=== PATIENT | male | born 1960 | race Hispanic/Latino ===

== ENCOUNTER 2023-01-13 13:22 | Emergency (ER) | payer MEDICAID ==
[~2023-01-13] VITALS: Ht 172.7 cm; Wt 77.1 kg
[2023-01-13] MEDS ORDERED: KETOROLAC 15MG/ML VIAL (15MG/ML) IV SCH (14:30)
[2023-01-13] MEDS ORDERED: CEFTRIAXONE 1G VIAL IVPB SCH (14:30)
[2023-01-13 14:39] LABS: BASOPHILS % (AUTO) 0.3 % (0.0-5.0); EOSINOPHILS % (AUTO) 0.2 % (0.0-8.0); HEMATOCRIT 45.1 % (42-54); LYMPHOCYTES % (AUTO) 11.6 % (21.0-51.0); MEAN CORPUSCULAR HEMOGLOBIN 30.4 pg (27.0-33.0); MEAN CORPUSCULAR HGB CONC 33.7 g/dL (32.0-36.0); MEAN CORPUSCULAR VOLUME 90.2 fL (79-99); MONOCYTES % (AUTO) 7.1 % (3.0-13.0); NEUTROPHILS % (AUTO) 80.6 % (40.0-77.0); PLATELET COUNT (AUTO) 279 K/uL (130-400); RED CELL DISTRIBUTION WIDTH 12.4 % (11.0-15.5); WHITE BLOOD COUNT (AUTO) 12.1 K/uL (4.8-10.8)
[2023-01-13 15:00] LABS: CREATININE 1.1 mg/dL (0.5-1.5); POTASSIUM 4.5 mmol/L (3.5-5.1)
[2023-01-13] MEDS ORDERED: CEPH500B PO (15:25)
[2023-01-13 15:34] VITALS: BP 135/110; PULSE 79; RESP 18; O2SAT 99
[2023-01-13 15:58] LABS: ERYTHROCYTE SEDIMENTATION RATE 20 MM/HR (0-20)
== END 2023-01-13 15:45 | disposition home or self-care (01) ==
LOC: EDH 13:22
DX: L03.113 Cellulitis of right upper limb (principal); F41.9 Anxiety disorder, unspecified; M19.90 Unspecified osteoarthritis, unspecified site; J45.909 Unspecified asthma, uncomplicated; F17.200 Nicotine dependence, unspecified, uncomplicated
CPT/HCPCS: 99285; 96374; 73200; 96375; 80048; 85025; 85651; 36415; J0696; J1885

== ENCOUNTER 2023-01-14 16:52 | Observation (INO) | payer MEDICAID ==
[~2023-01-14] VITALS: Ht 172.7 cm; Wt 93.2 kg
[~2023-01-14 16:52] MED LIST: CEPH500B PO
[2023-01-14 19:57] LABS: BASOPHILS # (AUTO) 0.04 K/uL (0.00-0.20); BASOPHILS % (AUTO) 0.4 % (0.0-5.0); HEMATOCRIT 42.9 % (42-54); IMMATURE GRANULOCYTE ABSOLUTE 0.03 K/uL (0-1); LYMPHOCYTES # (AUTO) 2.4 K/uL (1.0-4.8); LYMPHOCYTES % (AUTO) 24.2 % (21.0-51.0); MEAN CORPUSCULAR HEMOGLOBIN 30.7 pg (27.0-33.0); MEAN CORPUSCULAR HGB CONC 33.3 g/dL (32.0-36.0); MEAN CORPUSCULAR VOLUME 92.1 fL (79-99); MONOCYTES # (AUTO) 0.8 K/uL (0.1-1.0); MONOCYTES % (AUTO) 8.6 % (3.0-13.0); NEUTROPHILS # (AUTO) 6.3 K/uL (1.8-7.7); NEUTROPHILS % (AUTO) 64.5 % (40.0-77.0); PLATELET COUNT (AUTO) 251 K/uL (130-400); RED BLOOD CELL COUNT(AUTO) 4.66 MIL/uL (4.50-6.20); RED CELL DISTRIBUTION WIDTH 12.4 % (11.0-15.5); WHITE BLOOD COUNT (AUTO) 9.8 K/uL (4.8-10.8)
[2023-01-14] MEDS ORDERED: ZOSYN 3.375GM +NS 50ML IVPB ONE (20:00)
[2023-01-14] MEDS ORDERED: VANCOMYCIN KIT 1 GM/250 ML IV.KIT IV ONE (20:00)
[2023-01-14 20:03] LABS: APPEARANCE,URINE CLEAR (CLEAR); BILIRUBIN,URINE NEGATIVE (NEGATIVE); COLOR,URINE YELLOW (YELLOW); GLUCOSE, URINE (UA) NEGATIVE (NEGATIVE); KETONES,URINE NEGATIVE (NEGATIVE); LEUKOCYTE ESTERASE ,URINE NEGATIVE Leu/uL (NEGATIVE); NITRATE,URINE NEGATIVE (NEGATIVE); OCCULT BLOOD,URINE SMALL (NEGATIVE); PH,URINE 5.5 (5.0-8.0); PROTEIN,URINE NEGATIVE (NEGATIVE)
[2023-01-14] MEDS ORDERED: ZOSYN 3.375GM+NS 50ML 50 ML IVPB ONE (20:08)
[2023-01-14] MEDS ORDERED: VANCOMYCIN 1G/250ML KIT 250 ML IV ONE (20:08)
[2023-01-14 20:14] LABS: ADD UA MICROSCOPIC YES
[2023-01-14 20:16] LABS: BACTERIA,URINE RARE /HPF (None Seen); MUCUS,URINE MOD LPF (None Seen); WBC,URINE 0-1 /HPF (0-1)
[2023-01-14 20:17] LABS: POTASSIUM 3.9 mmol/L (3.5-5.1)
[2023-01-14 20:22] LABS: ALBUMIN 3.4 g/dL (3.5-5.0); BILIRUBIN,TOTAL 0.2 mg/dL (0.2-1.0); TOTAL PROTEIN, SERUM 7.2 g/dL (6.0-8.3)
[2023-01-14 20:50] LABS: CRP QUANTITATIVE 76.3 mg/L (0.00-9.0)
[2023-01-14] MEDS ORDERED: ACETAMINOPHEN 325 MG TAB PO PRN ×2 (23:00)
[2023-01-14] MEDS ORDERED: 0.9% NACL 500ML IV.SOLN 500 ML IV ONE (23:00)
[2023-01-14] MEDS ORDERED: MORPHINE 2 MG SYG IV PRN (23:00)
[2023-01-14] MEDS ORDERED: MORPHINE 4 MG SYG IV PRN (23:00)
[2023-01-14] MEDS ORDERED: VANCOMYCIN PROTOCOL PER PHARMACY IV PRN (23:00)
[2023-01-14] MEDS ORDERED: ONDANSETRON 4MG INJ IV PRN (23:00)
[2023-01-14] MEDS ORDERED: KETOROLAC 15MG/ML VIAL (15MG/ML) IV ONE (23:00)
[2023-01-14] MEDS ORDERED: MEROPENEM 1 GM VIAL ONE (23:26)
[2023-01-14] MEDS: LACTATED RINGERS 1000ML 1,000 ML IV SCH (23:33)
[2023-01-14] MEDS: MEROPENEM 1 GM in 0.9%NACL 100ML 100 ML IVPB SCH (23:33)
[2023-01-14 23:59] LABS: SARS-CoV-2, RNA, NAAT NEGATIVE SARS CoV-2 (NEGATIVE)
[2023-01-15 00:32] VITALS: BP 147/68; PULSE 73; RESP 20; O2SAT 96
[2023-01-15 04:45] VITALS: BP 148/58; PULSE 70; RESP 20
[2023-01-15 05:29] LABS: HEMATOCRIT 40.7 % (42-54); MEAN CORPUSCULAR HEMOGLOBIN 30.2 pg (27.0-33.0); MEAN CORPUSCULAR HGB CONC 32.9 g/dL (32.0-36.0); MEAN CORPUSCULAR VOLUME 91.9 fL (79-99); RED BLOOD CELL COUNT(AUTO) 4.43 MIL/uL (4.50-6.20); RED CELL DISTRIBUTION WIDTH 12.5 % (11.0-15.5); WHITE BLOOD COUNT (AUTO) 7.7 K/uL (4.8-10.8)
[2023-01-15 05:30] LABS: BASOPHILS # (AUTO) 0.04 K/uL (0.00-0.20); BASOPHILS % (AUTO) 0.5 % (0.0-5.0); EOSINOPHILS # (AUTO) 0.24 K/uL (0.00-0.70); EOSINOPHILS % (AUTO) 3.1 % (0.0-8.0); IMMATURE GRANULOCYTE ABSOLUTE 0.03 K/uL (0-1); LYMPHOCYTES # (AUTO) 2.6 K/uL (1.0-4.8); LYMPHOCYTES % (AUTO) 33.5 % (21.0-51.0); MONOCYTES # (AUTO) 0.7 K/uL (0.1-1.0); MONOCYTES % (AUTO) 8.6 % (3.0-13.0); NEUTROPHILS # (AUTO) 4.1 K/uL (1.8-7.7); NEUTROPHILS % (AUTO) 53.9 % (40.0-77.0); PLATELET COUNT (AUTO) 244 K/uL (130-400)
[2023-01-15 05:43] LABS: INR 0.93 (0.85-1.15); PROTHROMBIN TIME 10.4 SEC (9.6-11.6)
[2023-01-15 05:44] LABS: PARTIAL THROMBOPLASTIN TIME 30.3 SEC (26.3-35.5)
[2023-01-15 05:46] LABS: PHOSPHORUS 2.8 mg/dL (2.5-4.9); POTASSIUM 3.6 mmol/L (3.5-5.1)
[2023-01-15] MEDS ORDERED: COMPOUND IV MISC 1 EACH IVSOLN MISC PRN (07:00)
[2023-01-15 07:59] VITALS: BP 131/75; PULSE 62; RESP 16
[2023-01-15 08:00] VITALS: O2SAT 96
[2023-01-15] MEDS ORDERED: FAMOTIDINE 20MG VIAL IV SCH (09:00)
[2023-01-15] MEDS ORDERED: VANCOMYCIN 1G/250ML KIT 250 ML IV SCH (09:00)
[2023-01-15] MEDS: MEROPENEM 1 GM in 0.9%NACL 100ML 100 ML IVPB SCH (10:45)
[2023-01-15 11:00] VITALS: BP 147/87; PULSE 57; RESP 18
[2023-01-15] MEDS: LACTATED RINGERS 1000ML 1,000 ML IV SCH (12:20)
== END 2023-01-15 15:30 | disposition home or self-care (01) ==
LOC: EDH 16:52 → INTOOBSV 16:53 → EDHIP 16:53 → 3BH 23:42
PROVIDERS: ADMIT Internal Medicine; ATTEND Internal Medicine
DX: L03.113 Cellulitis of right upper limb (principal); Z20.822 Contact with and (suspected) exposure to COVID-19; F41.9 Anxiety disorder, unspecified; F32.A Depression, unspecified; F17.210 Nicotine dependence, cigarettes, uncomplicated; F43.10 Post-traumatic stress disorder, unspecified; F32.9 Major depressive disorder, single episode, unspecified; Z79.899 Other long term (current) drug therapy; Z98.890 Other specified postprocedural states
CPT/HCPCS: 96365; 96366 ×3; 96375 ×2; 96367; 99285; 82550; 80053; 85025 ×2; 87040 ×2; 83605; 86140; 81001; 36415 ×2; 87635; 73130; 93005; 84145; 96368; 83735; 84100; 80048; 85610; 85730; 86850; 86900; 86901; G0378 ×4; J7040; J7120; J2543; J3370 ×2; J1885; J2185 ×4; S0028; J3490